=== PATIENT | male | born 1980 | race Caucasian/White ===

== ENCOUNTER → 2017-12-01 | Outpatient (REF) | payer MEDICAID ==
[2017-12-01 16:32] LABS: ALBUMIN 3.7 GM/DL (3.2-5.2); ALBUMIN/GLOBULIN RATIO 0.88 (1.00-1.93); ALKALINE PHOSPHATASE 149 U/L (45-117); ALT/SGPT 72 U/L (12-78); ANION GAP 10 MEQ/L (8-16); AST/SGOT 37 U/L (7-37); BILIRUBIN,TOTAL 0.3 MG/DL (0.2-1.0); BLOOD UREA NITROGEN 19 MG/DL (7-18); CALCIUM LEVEL 9.6 MG/DL (8.5-10.1); CARBON DIOXIDE LEVEL 31 MEQ/L (21-32); CHLORIDE LEVEL 97 MEQ/L (98-107); CREATININE FOR GFR 1.15 MG/DL (0.70-1.30); GLOMERULAR FILTRATION RATE > 60.0 (>60); GLUCOSE, FASTING 303 MG/DL (70-100); POTASSIUM SERUM 4.7 MEQ/L (3.5-5.1); SODIUM LEVEL 138 MEQ/L (136-145); TOTAL PROTEIN 7.9 GM/DL (6.4-8.2)
[2017-12-01 16:49] LABS: ESTIMATED AVERAGE GLUCOSE 212 MG/DL (60-110)
[2017-12-01 17:28] LABS: APPEARANCE, URINE CLEAR (CLEAR); BACTERIA, URINE AUTO NEGATIVE (NEGATIVE); BILIRUBIN, URINE AUTO NEGATIVE (NEGATIVE); BLOOD, URINE BLOOD NEGATIVE (NEGATIVE); COLOR, URINE YELLOW (YELLOW); GLUCOSE, URINE (UA) AUTO 3+ mg/dL (NEGATIVE); KETONE, URINE AUTO NEGATIVE (NEGATIVE); LEUKOCYTE ESTERASE, URINE AUTO NEGATIVE (NEGATIVE); NITRITE, URINE AUTO NEGATIVE (NEGATIVE); PROTEIN, URINE AUTO NEGATIVE (NEGATIVE); RBC, URINE AUTO 0 /HPF (0-3); SPECIFIC GRAVITY URINE AUTO 1.032 (1.002-1.035); SQUAMOUS EPITHELIAL CELL UR AU 1 /HPF (0-6); UROBILINOGEN, URINE AUTO 0.2 mg/dL (0.0-2.0); WBC, URINE AUTO 1 /HPF (0-3)
[2017-12-01 20:05] LABS: CHLAMYDIA DNA AMPLIFICATION NEGATIVE (NEGATIVE); GC DNA AMPLIFICATION NEGATIVE (NEGATIVE)
[2017-12-02 15:47] LABS: HEPATITIS C VIRUS ABY INDEX 0.1 INDEX (<0.8)
[2017-12-03 10:53] LABS: QUANTIFERON GOLD TB Negative (Negative); TB Test (QFT) Antigen 0.11 IU/mL (.); TB Test (QFT) Antigen Minus Ni 0.01 IU/mL (.); TB Test (QFT) Mitogen 7.74 IU/mL (.)
[2017-12-06 00:07] LABS: % CD8 Pos Lymph 65.2 % (12.0-35.5); %CD4 Pos Lymphs 20.2 % (30.8-58.5); ABS Basophils 0.1 x10E3/uL (0.0-0.2); ABS Eosinophils 0.2 x10E3/uL (0.0-0.4); ABS Lymphs 2.1 x10E3/uL (0.7-3.1); ABS Monocytes 0.7 x10E3/uL (0.1-0.9); ABS Neutophils 3.2 x10E3/uL (1.4-7.0); Abs CD4 Helper 424 /uL (359-1519); Abs CD8 Suppres 1369 /uL (109-897); CD4/CD8 Ratio 0.31 (0.92-3.72); Eosinophils 2 % (Not Estab.); HCT 44.2 % (37.5-51.0); HGB 13.5 g/dL (13.0-17.7); Immature Grans 0 % (Not Estab.); Lymphocytes 34 % (Not Estab.); MCH 27.9 pg (26.6-33.0); MCHC 30.5 g/dL (31.5-35.7); MCV 91 fL (79-97); Monocytes 11 % (Not Estab.); Neutrophils 52 % (Not Estab.); Platelets 298 x10E3/uL (150-379); RBC 4.84 x10E6/uL (4.14-5.80); RDW 13.8 % (12.3-15.4); WBC 6.2 x10E3/uL (3.4-10.8)
[2017-12-06 08:12] LABS: RPR Reactive (Non Reactive); T PALLIDUM ANTIBODIES Positive (Negative)
[2017-12-06 10:25] LABS: CHLAMYDIA RECTAL APTIMA Positive (Negative); GC RECTAL APTIMA Negative (Negative)
[2017-12-06 15:00] LABS: CHLAMYDIA PHARYNGEAL APTIMA Negative (Negative); GC PHARYNGEAL APTIMA Negative (Negative)
[2017-12-07 00:08] LABS: HIV-1 RNA PCR QUANT 2 LC550285 117300 copies/mL (.); HIV-1 RNA PCR QUANT 3 LC550285 5.069 (.)
== END ==
LOC: M SFHCPLAZ 13:48
DX: B20 Human immunodeficiency virus [HIV] disease (principal); Z11.3 Encounter for screening for infections with a predominantly sexual mode of transmission; E11.9 Type 2 diabetes mellitus without complications; R21 Rash and other nonspecific skin eruption

== ENCOUNTER → 2018-03-06 | Outpatient (REF) | payer OTHER ==
[2018-03-06 13:15] LABS: ALBUMIN 3.8 GM/DL (3.2-5.2); ALBUMIN/GLOBULIN RATIO 1.03 (1.00-1.93); ALKALINE PHOSPHATASE 92 U/L (45-117); ALT/SGPT 22 U/L (12-78); ANION GAP 5 MEQ/L (8-16); AST/SGOT 14 U/L (7-37); BILIRUBIN,TOTAL 0.2 MG/DL (0.2-1.0); BLOOD UREA NITROGEN 17 MG/DL (7-18); CALCIUM LEVEL 9.5 MG/DL (8.5-10.1); CARBON DIOXIDE LEVEL 30 MEQ/L (21-32); CHLORIDE LEVEL 107 MEQ/L (98-107); CREATININE FOR GFR 1.33 MG/DL (0.70-1.30); GLOMERULAR FILTRATION RATE > 60.0 (>60); GLUCOSE, FASTING 151 MG/DL (70-100); POTASSIUM SERUM 4.4 MEQ/L (3.5-5.1); SODIUM LEVEL 142 MEQ/L (136-145); TOTAL PROTEIN 7.5 GM/DL (6.4-8.2)
[2018-03-06 13:22] LABS: MALB URINE SIEMENS < 5.0 MG/L
[2018-03-06 13:26] LABS: MAU/CREAT RATIO 3.6 MCG/MG (0.0-30.0)
[2018-03-06 13:37] LABS: ESTIMATED AVERAGE GLUCOSE 160 MG/DL (60-110); HEMOGLOBIN A1c 7.2 %
[2018-03-06 14:35] LABS: CHLAMYDIA DNA AMPLIFICATION NEGATIVE (NEGATIVE); GC DNA AMPLIFICATION NEGATIVE (NEGATIVE)
[2018-03-09 00:06] LABS: % CD8 Pos Lymph 47.5 % (12.0-35.5); %CD4 Pos Lymphs 33.8 % (30.8-58.5); ABS Eosinophils 0.3 x10E3/uL (0.0-0.4); ABS Lymphs 2.3 x10E3/uL (0.7-3.1); ABS Monocytes 0.7 x10E3/uL (0.1-0.9); ABS Neutophils 2.6 x10E3/uL (1.4-7.0); Abs CD4 Helper 777 /uL (359-1519); Abs CD8 Suppres 1093 /uL (109-897); CD4/CD8 Ratio 0.71 (0.92-3.72); Eosinophils 5 % (Not Estab.); HCT 39.5 % (37.5-51.0); HGB 12.5 g/dL (13.0-17.7); HIV-1 RNA PCR QUANT 2 LC550285 30 copies/mL (.); HIV-1 RNA PCR QUANT 3 LC550285 1.477 (.); Immature Grans 0 % (Not Estab.); Lymphocytes 38 % (Not Estab.); MCH 28.2 pg (26.6-33.0); MCHC 31.6 g/dL (31.5-35.7); MCV 89 fL (79-97); Monocytes 11 % (Not Estab.); Neutrophils 45 % (Not Estab.); Platelets 341 x10E3/uL (150-379); RBC 4.43 x10E6/uL (4.14-5.80); RDW 15.2 % (12.3-15.4); RPR Reactive (Non Reactive); TREPONEMA PALLIDUM ANTIBODIES Positive (Negative); WBC 5.9 x10E3/uL (3.4-10.8)
== END ==
LOC: M SFHCPLAZ 10:33
DX: B20 Human immunodeficiency virus [HIV] disease (principal); E11.9 Type 2 diabetes mellitus without complications; A56.3 Chlamydial infection of anus and rectum; A51.49 Other secondary syphilitic conditions

== ENCOUNTER → 2018-06-08 | Outpatient (REF) | payer OTHER ==
[~2018-06-08] MED LIST: /QUET25TA OR; AMBI5TAB; CELE20TA; CYCL10TA PO; DIOV320T; DIOV80TA; FOLI1TAB OR; GABA600T4 PO; HCT PO; HYDR25TA6; HYDR25TA6 OR; INSULANT SUBQ; LISI-538 PO; LISI20TA5 OR; LORA2TAB OR; MOTR200T44 PO; MULTIVIT; NOVOLOG100 MG/ML; PAXI20TA OR; SERO1TAB PO; SERO50TA PO; SEROQUEL PO; SIMV40TA2; STRITAB2 PO; THERGRAN; THIA100T OR; TRAZ150T OR; VALI10TA PO; ZOLO50TA PO; ZYPR15TA OR; humalog insulin SUBQ; lisinopril/hctz; tylenol #4 OR
[2018-06-08 11:48] LABS: ALBUMIN 4.6 GM/DL (3.2-5.2); ALT/SGPT 27 U/L (12-78); BILIRUBIN,TOTAL 0.4 MG/DL (0.2-1.0); BLOOD UREA NITROGEN 16 MG/DL (7-18); CALCIUM LEVEL 9.6 MG/DL (8.5-10.1); CARBON DIOXIDE LEVEL 30 MEQ/L (21-32); CHLORIDE LEVEL 101 MEQ/L (98-107); CREATININE FOR GFR 1.26 MG/DL (0.70-1.30); GLOMERULAR FILTRATION RATE > 60.0 (>60); GLUCOSE, FASTING 54 MG/DL (70-100); SODIUM LEVEL 137 MEQ/L (136-145); TOTAL PROTEIN 8.3 GM/DL (6.4-8.2)
[2018-06-08 11:51] LABS: APPEARANCE, URINE CLEAR (CLEAR); BACTERIA, URINE AUTO NEGATIVE (NEGATIVE); BILIRUBIN, URINE AUTO NEGATIVE (NEGATIVE); BLOOD, URINE BLOOD NEGATIVE (NEGATIVE); COLOR, URINE STRAW (YELLOW); GLUCOSE, URINE (UA) AUTO NEGATIVE (NEGATIVE); KETONE, URINE AUTO NEGATIVE (NEGATIVE); LEUKOCYTE ESTERASE, URINE AUTO NEGATIVE (NEGATIVE); NITRITE, URINE AUTO NEGATIVE (NEGATIVE); PROTEIN, URINE AUTO NEGATIVE (NEGATIVE); RBC, URINE AUTO 0 /HPF (0-3); SPECIFIC GRAVITY URINE AUTO 1.008 (1.002-1.035); SQUAMOUS EPITHELIAL CELL UR AU 0 /HPF (0-6); UROBILINOGEN, URINE AUTO 0.2 mg/dL (0.0-2.0); WBC, URINE AUTO 1 /HPF (0-3)
[2018-06-08 12:31] LABS: CREATININE, URINE 26.9 MG/DL; HEMOGLOBIN A1c 6.4 %; MALB URINE SIEMENS < 5.0 MG/L; MAU/CREAT RATIO 18.5 MCG/MG (0.0-30.0)
[2018-06-13 00:06] LABS: % CD8 Pos Lymph 59.4 % (12.0-35.5); %CD4 Pos Lymphs 21.1 % (30.8-58.5); ABS Eosinophils 0.1 x10E3/uL (0.0-0.4); ABS Monocytes 0.9 x10E3/uL (0.1-0.9); ABS Neutophils 2.5 x10E3/uL (1.4-7.0); Abs CD4 Helper 844 /uL (359-1519); Abs CD8 Suppres 2376 /uL (109-897); CD4/CD8 Ratio 0.36 (0.92-3.72); Eosinophils 1 % (Not Estab.); HCT 41.4 % (37.5-51.0); HGB 13.5 g/dL (13.0-17.7); HIV-1 RNA PCR QUANT 2 LC550285 <20 copies/mL (.); Immature Grans 0 % (Not Estab.); Lymphocytes 53 % (Not Estab.); MCH 28.8 pg (26.6-33.0); MCHC 32.6 g/dL (31.5-35.7); MCV 89 fL (79-97); Monocytes 12 % (Not Estab.); Neutrophils 33 % (Not Estab.); Platelets 344 x10E3/uL (150-379); RBC 4.68 x10E6/uL (4.14-5.80); RDW 14.2 % (12.3-15.4); RPR Reactive (Non Reactive); WBC 7.6 x10E3/uL (3.4-10.8)
== END ==
LOC: M SFHCPLAZ 08:36
PROVIDERS: ATTEND Internal Medicine Infectious Disease
DX: B20 Human immunodeficiency virus [HIV] disease (principal); E11.9 Type 2 diabetes mellitus without complications

== ENCOUNTER → 2018-07-28 | Outpatient (CLI) | payer BC, OTHER ==
[~2018-07-28] MED LIST changes: -/QUET25TA OR; +SERO1TAB3 OR
[2018-08-01 00:06] LABS: RPR Reactive (Non Reactive)
== END ==
LOC: M LAB 13:15
PROVIDERS: ATTEND Internal Medicine Infectious Disease
DX: A53.9 Syphilis, unspecified (principal)

== ENCOUNTER → 2018-08-15 | Outpatient (REF) | payer BC, OTHER | LOC: M SFHCPLAZ 13:29 | PROVIDERS: ATTEND Internal Medicine Infectious Disease | DX: R19.7 Diarrhea, unspecified (principal) ==

== ENCOUNTER 2018-09-10 02:54 | Emergency (ER) | payer BC, MEDICAID ==
[~2018-09-10] VITALS: Ht 175.3 cm; Wt 86.4 kg
[2018-09-10 03:08] VITALS: BP 128/73
[2018-09-10] MEDS ORDERED: KETOROLAC 30 MG/ML VIAL (J1885) IV ONE (04:00)
--- NOTE | 2018-09-10 05:27 | REPVR ---
EXAM: CT Head Without Contrast EXAM DATE/TIME: 09/10/2018 3:59 AM CLINICAL HISTORY: 38 years old, male; Injury or trauma; Fall; Initial encounter; Blunt trauma (contusions or hematomas); Consciousness not specified TECHNIQUE: Imaging protocol: Axial computed tomography images of the head/brain without contrast. Radiation optimization: All CT scans at this facility use at least one of these dose optimization techniques: automated exposure control; mA and/or kV adjustment per patient size (includes targeted exams where dose is matched to clinical indication); or iterative reconstruction. COMPARISON: No relevant prior studies available. FINDINGS: Brain: There is no evidence for an acute large vessel territorial infarct, intracranial hemorrhage, mass, mass effect, or herniation. The cortical gyration pattern, basal ganglia, thalami, and cerebellum are normal in appearance. Brainstem: Unremarkable. Midline shift: There is no midline shift. Ventricles: Normal. No ventriculomegaly. Bones/joints: Unremarkable. No acute fracture. Sinuses: Visualized sinuses are unremarkable. No acute sinusitis. Mastoid air cells: Visualized mastoid air cells are unremarkable. No mastoid effusion. Soft tissues: Unremarkable. IMPRESSION: No acute intracranial abnormality. Electronically signed by: Aime Estevez On 09/10/2018 05:27:34 AM
== END 2018-09-10 06:17 | disposition home or self-care (01) ==
LOC: M ED 02:54
DX: E11.65 Type 2 diabetes mellitus with hyperglycemia (principal); I10 Essential (primary) hypertension; Z21 Asymptomatic human immunodeficiency virus [HIV] infection status; Z79.4 Long term (current) use of insulin; Z79.899 Other long term (current) drug therapy
CPT/HCPCS: 70450; 96374; 99284; J1885

== ENCOUNTER → 2018-09-19 | Outpatient (REF) | payer BC, MEDICAID ==
[2018-09-19 10:45] LABS: APPEARANCE, URINE CLEAR (CLEAR); BACTERIA, URINE AUTO NEGATIVE (NEGATIVE); BILIRUBIN, URINE AUTO NEGATIVE (NEGATIVE); BLOOD, URINE BLOOD NEGATIVE (NEGATIVE); COLOR, URINE YELLOW (YELLOW); GLUCOSE, URINE (UA) AUTO 1+ mg/dL (NEGATIVE); KETONE, URINE AUTO NEGATIVE (NEGATIVE); LEUKOCYTE ESTERASE, URINE AUTO NEGATIVE (NEGATIVE); NITRITE, URINE AUTO NEGATIVE (NEGATIVE); PROTEIN, URINE AUTO NEGATIVE (NEGATIVE); RBC, URINE AUTO 3 /HPF (0-3); SPECIFIC GRAVITY URINE AUTO 1.024 (1.002-1.035); SQUAMOUS EPITHELIAL CELL UR AU 2 /HPF (0-6); UROBILINOGEN, URINE AUTO 0.2 mg/dL (0.0-2.0); WBC, URINE AUTO 1 /HPF (0-3)
[2018-09-19 10:56] LABS: ALBUMIN 3.4 GM/DL (3.2-5.2); ALT/SGPT 19 U/L (12-78); BILIRUBIN,TOTAL 0.3 MG/DL (0.2-1.0); BLOOD UREA NITROGEN 16 MG/DL (7-18); CALCIUM LEVEL 8.7 MG/DL (8.5-10.1); CARBON DIOXIDE LEVEL 30 MEQ/L (21-32); CHLORIDE LEVEL 106 MEQ/L (98-107); GLOMERULAR FILTRATION RATE > 60.0 (>60); GLUCOSE, FASTING 176 MG/DL (70-100); POTASSIUM SERUM 4.9 MEQ/L (3.5-5.1); SODIUM LEVEL 139 MEQ/L (136-145); TOTAL PROTEIN 7.1 GM/DL (6.4-8.2)
[2018-09-19 11:27] LABS: HEMOGLOBIN A1c 7.1 %
[2018-09-19 11:36] LABS: CHLAMYDIA DNA AMPLIFICATION NEGATIVE (NEGATIVE); GC DNA AMPLIFICATION NEGATIVE (NEGATIVE)
[2018-09-20 14:11] LABS: RPR Reactive (Non Reactive)
== END ==
LOC: M SFHCPLAZ 08:02
PROVIDERS: ATTEND Internal Medicine Infectious Disease
DX: B20 Human immunodeficiency virus [HIV] disease (principal); E11.9 Type 2 diabetes mellitus without complications; A53.9 Syphilis, unspecified

== ENCOUNTER 2018-11-03 09:48 | Day surgery (SDC) | payer BC ==
[~2018-11-03] VITALS: Ht 175.3 cm; Wt 83.5 kg
[~2018-11-03 09:48] MED LIST changes: +BASA100I SC; +HYDR12.55 PO; +NS 1,000 ML IV ONE
[2018-11-03] MEDS ORDERED: LIDOCAINE 2% INJ 100 MG/5 ML SDV (FOR ANES.) As Ordered ONE (10:20)
[2018-11-03] MEDS ORDERED: FINA5TAB2 PO (10:20)
[2018-11-03] MEDS ORDERED: GENV1TAB PO (10:20)
[2018-11-03] MEDS ORDERED: PROPOFOL 200 MG/20 ML VIAL As Ordered ONE (10:20)
--- NOTE | 2018-11-03 11:15 | ROOR ---
Patient Name: Jose Montes De Oca Procedure Date: 11/03/2018 10:40 AM Date of : 1980 Age: 38 Room: [facility] Gender: Male Note Status: Finalized Procedure: Colonoscopy Indications: Rectal bleeding, Rectal pain Providers: Delfino WHEATLEY MD Referring MD: Eugenio AMGDALENO MD. Requesting Provider: Medicines: Monitored Anesthesia Care Complications: No immediate complications. Procedure: Pre-Anesthesia Assessment: - The heart rate, respiratory rate, oxygen saturations, blood pressure, adequacy of pulmonary ventilation, and response to care were monitored throughout the procedure. The Colonoscope was introduced through the anus and advanced to 10 cm into the ileum. The colonoscopy was performed without difficulty. The patient tolerated the procedure well. The quality of the bowel preparation was fair. Findings: The perianal and digital rectal examinations were normal. Localized inflammation characterized by erythema, friability and shallow ulcerations was found in the distal rectum. Biopsies were taken with a cold forceps for histology. A 4 mm polyp was found in the splenic flexure. The polyp was sessile. The polyp was removed with a cold snare. Resection and retrieval were complete. The terminal ileum appeared normal. Impression: - Preparation of the colon was fair. - Localized inflammation was found in the distal rectum secondary to proctitis (with shallow erosions). Biopsied- r/o IBD. - One 4 mm polyp at the splenic flexure, removed with a cold snare. Resected and retrieved. - The examined portion of the ileum was normal. Recommendation: - Telephone endoscopist for pathology results in 2 weeks. - Use Canasa 1000 mg suppository 1 per rectum QHS for 4 months. Delfino Wheatley MD Delfino WHEATLEY MD 11/03/2018 11:15:06 AM Electronically signed by Delfino WHEATLEY MD Number of Addenda: 0 Note Initiated On: 11/03/2018 10:40 AM Estimated Blood Loss: Estimated blood loss: none.
[2018-11-03 11:41] VITALS: BP 138/97
== END 2018-11-03 11:44 | disposition home or self-care (01) ==
LOC: M OPP 09:48
PROVIDERS: ATTEND Internal Medicine Gastroenterology
DX: D12.3 Benign neoplasm of transverse colon (principal); K51.20 Ulcerative (chronic) proctitis without complications; K62.5 Hemorrhage of anus and rectum; K62.89 Other specified diseases of anus and rectum; B20 Human immunodeficiency virus [HIV] disease; A53.9 Syphilis, unspecified

== ENCOUNTER → 2018-12-19 | Outpatient (REF) | payer BC ==
[~2018-12-19] MED LIST changes: +FINA5TAB2 PO; +GENV1TAB PO; -NS 1,000 ML IV ONE
[2018-12-19 12:34] LABS: ALBUMIN 3.8 GM/DL (3.2-5.2); ALT/SGPT 28 U/L (12-78); BILIRUBIN,TOTAL 0.3 MG/DL (0.2-1.0); BLOOD UREA NITROGEN 10 MG/DL (7-18); CALCIUM LEVEL 9.7 MG/DL (8.5-10.1); CARBON DIOXIDE LEVEL 33 MEQ/L (21-32); CHLORIDE LEVEL 103 MEQ/L (98-107); CHOLESTEROL LEVEL 175 MG/DL (<200); CHOLESTEROL RISK RATIO 6.481 (<5); CREATININE FOR GFR 1.18 MG/DL (0.70-1.30); GLOMERULAR FILTRATION RATE > 60.0 (>60); GLUCOSE, FASTING 70 MG/DL (70-100); HDL CHOLESTEROL 27 MG/DL (>40); LDL CHOLESTEROL 115 MG/DL (<100); NON-HDL-C 148 MG/DL; SODIUM LEVEL 141 MEQ/L (136-145); TOTAL PROTEIN 7.8 GM/DL (6.4-8.2); TRIGLYCERIDES LEVEL 164 MG/DL (<150)
[2018-12-19 12:36] LABS: CHLAMYDIA DNA AMPLIFICATION NEGATIVE (NEGATIVE); GC DNA AMPLIFICATION NEGATIVE (NEGATIVE)
[2018-12-19 12:39] LABS: HEMOGLOBIN A1c 7.6 %
[2018-12-21 08:15] LABS: CHLAMYDIA PHARYNGEAL APTIMA Negative (Negative); GC PHARYNGEAL APTIMA Negative (Negative)
[2018-12-22 00:08] LABS: % CD8 Pos Lymph 45.7 % (12.0-35.5); %CD4 Pos Lymphs 34.9 % (30.8-58.5); ABS Eosinophils 0.2 x10E3/uL (0.0-0.4); ABS Lymphs 3.3 x10E3/uL (0.7-3.1); ABS Monocytes 0.9 x10E3/uL (0.1-0.9); ABS Neutophils 2.5 x10E3/uL (1.4-7.0); Abs CD4 Helper 1152 /uL (359-1519); Abs CD8 Suppres 1508 /uL (109-897); CD4/CD8 Ratio 0.76 (0.92-3.72); Eosinophils 3 % (Not Estab.); HGB 12.3 g/dL (13.0-17.7); HIV-1 RNA PCR QUANT 2 LC550285 650 copies/mL (.); HIV-1 RNA PCR QUANT 3 LC550285 2.813 (.); Immature Grans 0 % (Not Estab.); Lymphocytes 47 % (Not Estab.); MCH 28.3 pg (26.6-33.0); MCHC 31.5 g/dL (31.5-35.7); MCV 90 fL (79-97); Monocytes 13 % (Not Estab.); Neutrophils 36 % (Not Estab.); Platelets 307 x10E3/uL (150-450); RBC 4.35 x10E6/uL (4.14-5.80); RDW 13.4 % (12.3-15.4); RPR Reactive (Non Reactive); WBC 6.8 x10E3/uL (3.4-10.8)
[2018-12-22 08:07] LABS: CHLAMYDIA RECTAL APTIMA Positive (Negative); GC RECTAL APTIMA Negative (Negative)
== END ==
LOC: M SFHCPLAZ 08:30
PROVIDERS: ATTEND Internal Medicine Infectious Disease
DX: B20 Human immunodeficiency virus [HIV] disease (principal); E11.9 Type 2 diabetes mellitus without complications; A53.9 Syphilis, unspecified

== ENCOUNTER → 2019-03-19 | Outpatient (REF) | payer BC ==
[2019-03-19 12:26] LABS: ALBUMIN 3.8 GM/DL (3.2-5.2); ALT/SGPT 34 U/L (12-78); BILIRUBIN,TOTAL 0.2 MG/DL (0.2-1.0); BLOOD UREA NITROGEN 12 MG/DL (7-18); CALCIUM LEVEL 9.1 MG/DL (8.5-10.1); CARBON DIOXIDE LEVEL 31 MEQ/L (21-32); CHLORIDE LEVEL 99 MEQ/L (98-107); GLOMERULAR FILTRATION RATE > 60.0 (>60); GLUCOSE, FASTING 312 MG/DL (70-100); POTASSIUM SERUM 4.1 MEQ/L (3.5-5.1); SODIUM LEVEL 137 MEQ/L (136-145); TOTAL PROTEIN 7.7 GM/DL (6.4-8.2)
[2019-03-19 13:21] LABS: HEMOGLOBIN A1c 7.6 %
[2019-03-19 15:21] LABS: CHLAMYDIA DNA AMPLIFICATION NEGATIVE (NEGATIVE); GC DNA AMPLIFICATION NEGATIVE (NEGATIVE)
[2019-03-22 00:15] LABS: % CD8 Pos Lymph 50.1 % (12.0-35.5); %CD4 Pos Lymphs 27.6 % (30.8-58.5); ABS Lymphs 1.6 x10E3/uL (0.7-3.1); ABS Monocytes 0.7 x10E3/uL (0.1-0.9); ABS Neutophils 8.1 x10E3/uL (1.4-7.0); Abs CD4 Helper 442 /uL (359-1519); Abs CD8 Suppres 802 /uL (109-897); CD4/CD8 Ratio 0.55 (0.92-3.72); Eosinophils 0 % (Not Estab.); HCT 42.2 % (37.5-51.0); HGB 13.7 g/dL (13.0-17.7); HIV-1 RNA PCR QUANT 2 LC550285 40 copies/mL (.); HIV-1 RNA PCR QUANT 3 LC550285 1.602 (.); Imm ABS Grans 0.1 x10E3/uL (0.0-0.1); Immature Grans 1 % (Not Estab.); Lymphocytes 15 % (Not Estab.); MCH 29.5 pg (26.6-33.0); MCHC 32.5 g/dL (31.5-35.7); MCV 91 fL (79-97); Monocytes 7 % (Not Estab.); Neutrophils 77 % (Not Estab.); Platelets 321 x10E3/uL (150-450); RBC 4.64 x10E6/uL (4.14-5.80); RDW 14.1 % (12.3-15.4); RPR Non Reactive (Non Reactive); WBC 10.5 x10E3/uL (3.4-10.8)
[2019-03-22 00:15] LABS: CHLAMYDIA PHARYNGEAL APTIMA Negative (Negative); CHLAMYDIA RECTAL APTIMA Negative (Negative); GC PHARYNGEAL APTIMA Negative (Negative); GC RECTAL APTIMA Negative (Negative)
== END ==
LOC: M SFHCPLAZ 08:46
PROVIDERS: ATTEND Internal Medicine Infectious Disease
DX: B20 Human immunodeficiency virus [HIV] disease (principal); E11.9 Type 2 diabetes mellitus without complications; A53.9 Syphilis, unspecified

== ENCOUNTER → 2019-06-19 | Outpatient (REF) | payer BC ==
[2019-06-19 12:22] LABS: ALBUMIN 4.3 GM/DL (3.2-5.2); ALT/SGPT 33 U/L (12-78); BILIRUBIN,TOTAL 0.5 MG/DL (0.2-1.0); BLOOD UREA NITROGEN 12 MG/DL (7-18); CALCIUM LEVEL 9.7 MG/DL (8.5-10.1); CARBON DIOXIDE LEVEL 33 MEQ/L (21-32); CHLORIDE LEVEL 98 MEQ/L (98-107); CREATININE FOR GFR 1.11 MG/DL (0.70-1.30); FREE T4 0.83 NG/DL (0.76-1.46); GLOMERULAR FILTRATION RATE > 60.0 (>60); GLUCOSE, FASTING 68 MG/DL (70-100); SODIUM LEVEL 137 MEQ/L (136-145); TOTAL PROTEIN 8.1 GM/DL (6.4-8.2)
[2019-06-19 13:20] LABS: CHLAMYDIA DNA AMPLIFICATION NEGATIVE (NEGATIVE); GC DNA AMPLIFICATION NEGATIVE (NEGATIVE)
[2019-06-19 13:31] LABS: HEMOGLOBIN A1c 7.2 %
[2019-06-21 08:06] LABS: CHLAMYDIA PHARYNGEAL APTIMA Negative (Negative); GC PHARYNGEAL APTIMA Positive (Negative)
[2019-06-22 00:06] LABS: % CD8 Pos Lymph 56.8 % (12.0-35.5); %CD4 Pos Lymphs 27.8 % (30.8-58.5); ABS Eosinophils 0.1 x10E3/uL (0.0-0.4); ABS Lymphs 3.3 x10E3/uL (0.7-3.1); ABS Monocytes 1.2 x10E3/uL (0.1-0.9); ABS Neutophils 4.3 x10E3/uL (1.4-7.0); Abs CD4 Helper 917 /uL (359-1519); Abs CD8 Suppres 1874 /uL (109-897); CD4/CD8 Ratio 0.49 (0.92-3.72); Eosinophils 1 % (Not Estab.); HCT 42.3 % (37.5-51.0); HGB 14.2 g/dL (13.0-17.7); HIV-1 RNA PCR QUANT 2 LC550285 <20 copies/mL (.); Immature Grans 0 % (Not Estab.); Lymphocytes 37 % (Not Estab.); MCH 28.7 pg (26.6-33.0); MCHC 33.6 g/dL (31.5-35.7); MCV 86 fL (79-97); Monocytes 13 % (Not Estab.); Neutrophils 49 % (Not Estab.); Platelets 393 x10E3/uL (150-450); RBC 4.94 x10E6/uL (4.14-5.80); RDW 14.2 % (11.6-15.4); RPR Reactive (Non Reactive); WBC 8.9 x10E3/uL (3.4-10.8)
== END ==
LOC: M SFHCPLAZ 09:52
PROVIDERS: ATTEND Internal Medicine Infectious Disease
DX: B20 Human immunodeficiency virus [HIV] disease (principal); E11.9 Type 2 diabetes mellitus without complications; A53.9 Syphilis, unspecified; F32.9 Major depressive disorder, single episode, unspecified

== ENCOUNTER → 2019-12-10 | Outpatient (REF) | payer BC ==
[~2019-12-10] MED LIST changes: +CYCL-707 PO; -CYCL10TA PO
[2019-12-10 15:45] LABS: ALBUMIN 3.7 GM/DL (3.2-5.2); ALT/SGPT 22 U/L (12-78); BILIRUBIN,TOTAL 0.5 MG/DL (0.2-1.0); BLOOD UREA NITROGEN 19 MG/DL (7-18); CALCIUM LEVEL 9.6 MG/DL (8.5-10.1); CARBON DIOXIDE LEVEL 29 MEQ/L (21-32); CHLORIDE LEVEL 99 MEQ/L (98-107); CREATININE FOR GFR 1.17 MG/DL (0.70-1.30); GLOMERULAR FILTRATION RATE > 60.0 (>60); GLUCOSE, FASTING 236 MG/DL (70-100); POTASSIUM SERUM 4.4 MEQ/L (3.5-5.1); SODIUM LEVEL 135 MEQ/L (136-145); TOTAL PROTEIN 8.2 GM/DL (6.4-8.2)
[2019-12-10 17:20] LABS: CHLAMYDIA DNA AMPLIFICATION NEGATIVE (NEGATIVE); GC DNA AMPLIFICATION NEGATIVE (NEGATIVE)
[2019-12-14 19:09] LABS: % CD8 Pos Lymph 61.7 % (12.0-35.5); %CD4 Pos Lymphs 23.7 % (30.8-58.5); ABS Eosinophils 0.1 x10E3/uL (0.0-0.4); ABS Lymphs 1.8 x10E3/uL (0.7-3.1); ABS Monocytes 0.6 x10E3/uL (0.1-0.9); Abs CD4 Helper 427 /uL (359-1519); Abs CD8 Suppres 1111 /uL (109-897); CD4/CD8 Ratio 0.38 (0.92-3.72); Eosinophils 1 % (Not Estab.); HCT 42.9 % (37.5-51.0); HIV-1 RNA PCR QUANT 2 LC550285 99030 copies/mL (.); HIV-1 RNA PCR QUANT 3 LC550285 4.996 (.); Immature Grans 0 % (Not Estab.); Lymphocytes 27 % (Not Estab.); MCH 26.5 pg (26.6-33.0); MCHC 30.3 g/dL (31.5-35.7); MCV 88 fL (79-97); Monocytes 10 % (Not Estab.); Neutrophils 61 % (Not Estab.); Platelets 335 x10E3/uL (150-450); RDW 13.3 % (11.6-15.4); RPR Reactive (Non Reactive); WBC 6.6 x10E3/uL (3.4-10.8)
[2019-12-17 17:08] LABS: CHLAMYDIA PHARYNGEAL APTIMA Negative (Negative); GC PHARYNGEAL APTIMA Negative (Negative)
== END ==
LOC: M SFHCPLAZ 14:04
PROVIDERS: ATTEND Internal Medicine Infectious Disease
DX: B20 Human immunodeficiency virus [HIV] disease (principal); A53.9 Syphilis, unspecified

== ENCOUNTER → 2020-03-05 | Outpatient (REF) | payer OTHER ==
[2020-03-05 13:20] LABS: ALBUMIN 3.8 GM/DL (3.2-5.2); ALT/SGPT 45 U/L (12-78); BILIRUBIN,TOTAL 0.7 MG/DL (0.2-1.0); BLOOD UREA NITROGEN 18 MG/DL (7-18); CALCIUM LEVEL 9.2 MG/DL (8.5-10.1); CARBON DIOXIDE LEVEL 28 MEQ/L (21-32); CHLORIDE LEVEL 101 MEQ/L (98-107); CHOLESTEROL LEVEL 175 MG/DL (<200); FREE T4 1.21 NG/DL (0.76-1.46); GLOMERULAR FILTRATION RATE > 60.0 (>60); GLUCOSE, FASTING 170 MG/DL (70-100); HDL CHOLESTEROL 25 MG/DL (>40); LDL CHOLESTEROL 129 MG/DL (<100); NON-HDL-C 150 MG/DL; SODIUM LEVEL 135 MEQ/L (136-145); THYROID STIMULATING HORMONE 0.545 uIU/ML (0.358-3.740); TRIGLYCERIDES LEVEL 106 MG/DL (<150)
[2020-03-05 13:54] LABS: HEMOGLOBIN A1c 7.6 %
== END ==
LOC: M SFHCPLAZ 09:58
PROVIDERS: ATTEND Family Medicine
DX: I10 Essential (primary) hypertension (principal); E78.2 Mixed hyperlipidemia; R79.89 Other specified abnormal findings of blood chemistry; E11.9 Type 2 diabetes mellitus without complications

== ENCOUNTER → 2020-03-17 | Outpatient (REF) | payer OTHER | LOC: M SFHCPLAZ 11:20 | PROVIDERS: ATTEND Internal Medicine Infectious Disease | DX: B20 Human immunodeficiency virus [HIV] disease (principal); A53.9 Syphilis, unspecified ==

== ENCOUNTER → 2020-09-15 | Outpatient (REF) | payer OTHER ==
[~2020-09-15] MED LIST changes: -LISI-538 PO; +LISI20TA33 PO
== END ==
LOC: M SFHCPLAZ 09:23
PROVIDERS: ATTEND Internal Medicine Infectious Disease
DX: B20 Human immunodeficiency virus [HIV] disease (principal); E11.9 Type 2 diabetes mellitus without complications

== ENCOUNTER → 2020-12-29 | Outpatient (REF) | payer OTHER ==
[2020-12-29 14:24] LABS: CREATININE, URINE 91.1 MG/DL; MALB URINE SIEMENS 7.2 MG/L; MAU/CREAT RATIO 7.9 MCG/MG (0.0-30.0)
== END ==
LOC: M SFHCPLAZ 13:21
PROVIDERS: ATTEND Family Medicine
DX: I10 Essential (primary) hypertension (principal)

== ENCOUNTER → 2021-02-03 | Outpatient (CLI) | payer OTHER ==
[2021-02-03 11:50] LABS: ALBUMIN 3.7 GM/DL (3.2-5.2); BILIRUBIN,TOTAL 0.5 MG/DL (0.2-1.0); CALCIUM LEVEL 9.4 MG/DL (8.5-10.1); CREATININE FOR GFR 1.41 MG/DL (0.70-1.30); GLOMERULAR FILTRATION RATE 59.3 (>60); POTASSIUM SERUM 4.5 MEQ/L (3.5-5.1); TOTAL PROTEIN 7.5 GM/DL (6.4-8.2)
[2021-02-03 12:45] LABS: HEMOGLOBIN A1c 7.5 %
== END ==
LOC: M PLALAB 07:48
PROVIDERS: ATTEND Family Medicine
DX: E10.69 Type 1 diabetes mellitus with other specified complication (principal)

== ENCOUNTER → 2021-02-17 | Outpatient (CLI) | payer OTHER ==
[2021-02-17 14:06] LABS: BLOOD UREA NITROGEN 15 MG/DL (7-18); CALCIUM LEVEL 9.3 MG/DL (8.5-10.1); CARBON DIOXIDE LEVEL 30 MEQ/L (21-32); CHLORIDE LEVEL 104 MEQ/L (98-107); CREATININE FOR GFR 1.23 MG/DL (0.70-1.30); GLOMERULAR FILTRATION RATE > 60.0 (>60); GLUCOSE, FASTING 162 MG/DL (70-100); POTASSIUM SERUM 4.7 MEQ/L (3.5-5.1); SODIUM LEVEL 139 MEQ/L (136-145)
== END ==
LOC: M PLALAB 10:37
PROVIDERS: ATTEND Family Medicine
DX: R94.4 Abnormal results of kidney function studies (principal)

== ENCOUNTER → 2021-03-16 | Outpatient (CLI) | payer OTHER ==
[2021-03-16 14:40] LABS: FREE T4 1.02 NG/DL (0.76-1.46); THYROID STIMULATING HORMONE 5.72 uIU/ML (0.358-3.740)
[2021-03-18 16:38] LABS: RPR Reactive (Non Reactive)
== END ==
LOC: M PLALAB 08:48
PROVIDERS: ATTEND Internal Medicine Infectious Disease
DX: A53.9 Syphilis, unspecified (principal); E11.9 Type 2 diabetes mellitus without complications

== ENCOUNTER → 2021-05-01 | Outpatient (REF) | payer OTHER, BC | LOC: M LAB REF 18:00 | PROVIDERS: ATTEND Internal Medicine Gastroenterology | DX: K51.218 Ulcerative (chronic) proctitis with other complication (principal) ==

== ENCOUNTER → 2021-05-19 | Outpatient (CLI) | payer OTHER ==
[2021-05-19 15:35] LABS: HEMOGLOBIN A1c 6.7 %
[2021-05-19 15:55] LABS: ALBUMIN 3.7 GM/DL (3.2-5.2); ALT/SGPT 29 U/L (12-78); BILIRUBIN,TOTAL 0.4 MG/DL (0.2-1.0); BLOOD UREA NITROGEN 16 MG/DL (7-18); CALCIUM LEVEL 9.4 MG/DL (8.5-10.1); CARBON DIOXIDE LEVEL 31 MEQ/L (21-32); CHLORIDE LEVEL 102 MEQ/L (98-107); CREATININE FOR GFR 1.29 MG/DL (0.70-1.30); FREE T4 0.89 NG/DL (0.76-1.46); GLOMERULAR FILTRATION RATE > 60.0 (>60); GLUCOSE, FASTING 128 MG/DL (70-100); POTASSIUM SERUM 4.4 MEQ/L (3.5-5.1); SODIUM LEVEL 139 MEQ/L (136-145); TOTAL PROTEIN 7.2 GM/DL (6.4-8.2)
[2021-05-21 16:08] LABS: % CD8 Pos Lymph 62.3 % (12.0-35.5); %CD4 Pos Lymphs 23.1 % (30.8-58.5); ABS Basophils 0.1 x10E3/uL (0.0-0.2); ABS Eosinophils 0.2 x10E3/uL (0.0-0.4); ABS Lymphs 2.8 x10E3/uL (0.7-3.1); ABS Monocytes 0.6 x10E3/uL (0.1-0.9); Abs CD4 Helper 647 /uL (359-1519); Abs CD8 Suppres 1744 /uL (109-897); CD4/CD8 Ratio 0.37 (0.92-3.72); Eosinophils 4 % (Not Estab.); HCT 41.7 % (37.5-51.0); HGB 13.9 g/dL (13.0-17.7); HIV-1 RNA PCR QUANT 2 LC550285 <20 copies/mL (.); Immature Grans 0 % (Not Estab.); Lymphocytes 49 % (Not Estab.); MCH 29.3 pg (26.6-33.0); MCHC 33.3 g/dL (31.5-35.7); MCV 88 fL (79-97); Monocytes 11 % (Not Estab.); Neutrophils 35 % (Not Estab.); Platelets 338 x10E3/uL (150-450); RBC 4.75 x10E6/uL (4.14-5.80); RDW 13.4 % (11.6-15.4); RPR Reactive (Non Reactive); WBC 5.6 x10E3/uL (3.4-10.8)
== END ==
LOC: M PLALAB 11:38
PROVIDERS: ATTEND Internal Medicine Infectious Disease
DX: E11.9 Type 2 diabetes mellitus without complications (principal)

== ENCOUNTER → 2021-06-27 | Outpatient (CLI) | payer OTHER ==
[~2021-06-27] MED LIST changes: +AMLO1TAB24 PO; +BIKT1TAB PO; +BUPR150T12 PO; +GABA-282 PO; +LISI20TA37 PO
== END ==
LOC: M LABSMTC 10:32
PROVIDERS: ATTEND Anesthesiology
DX: Z01.812 Encounter for preprocedural laboratory examination (principal); Z20.822 Contact with and (suspected) exposure to COVID-19

== ENCOUNTER 2021-07-02 06:35 | Day surgery (SDC) | payer OTHER ==
[~2021-07-02] VITALS: Ht 172.7 cm; Wt 112.9 kg
[~2021-07-02 06:35] MED LIST changes: +NS 1,000 ML IV ONE
[2021-07-02] MEDS ORDERED: LIDOCAINE 2% 100MG/5ML SDV (FOR ANES.) As Ordered ONE (07:12)
[2021-07-02] MEDS ORDERED: propofoL 200 MG/20 ML VIAL As Ordered ONE (07:12)
[2021-07-02 08:19] VITALS: BP 149/85
== END 2021-07-02 08:22 | disposition home or self-care (01) ==
LOC: M OPP 06:35
PROVIDERS: ATTEND Internal Medicine Gastroenterology
DX: D12.2 Benign neoplasm of ascending colon (principal); D12.3 Benign neoplasm of transverse colon; D12.4 Benign neoplasm of descending colon; D12.5 Benign neoplasm of sigmoid colon; K62.1 Rectal polyp; K51.20 Ulcerative (chronic) proctitis without complications; Z79.4 Long term (current) use of insulin; Z79.899 Other long term (current) drug therapy

== ENCOUNTER → 2021-08-06 | Outpatient (CLI) | payer OTHER ==
[~2021-08-06] MED LIST changes: -NS 1,000 ML IV ONE
[2021-08-06 10:41] LABS: BLOOD UREA NITROGEN 18 MG/DL (7-18); CALCIUM LEVEL 9.7 MG/DL (8.5-10.1); CARBON DIOXIDE LEVEL 31 MEQ/L (21-32); CHLORIDE LEVEL 101 MEQ/L (98-107); CHOLESTEROL LEVEL 205 MG/DL (<200); CREATININE FOR GFR 1.34 MG/DL (0.70-1.30); GLOMERULAR FILTRATION RATE > 60.0 (>60); GLUCOSE, FASTING 225 MG/DL (70-100); HDL CHOLESTEROL 25 MG/DL (>40); LDL CHOLESTEROL 149 MG/DL (<100); NON-HDL-C 180 MG/DL; POTASSIUM SERUM 4.8 MEQ/L (3.5-5.1); SODIUM LEVEL 136 MEQ/L (136-145); TRIGLYCERIDES LEVEL 156 MG/DL (<150)
[2021-08-06 12:02] LABS: HEMOGLOBIN A1c 7.7 %
== END ==
LOC: M PLAIMG 08:25
PROVIDERS: ATTEND Family Medicine
DX: M25.861 Other specified joint disorders, right knee (principal); E11.9 Type 2 diabetes mellitus without complications; I10 Essential (primary) hypertension; E78.2 Mixed hyperlipidemia

== ENCOUNTER → 2021-09-14 | Outpatient (CLI) | payer OTHER ==
[2021-09-14 11:25] LABS: ALBUMIN 4.2 GM/DL (3.2-5.2); BILIRUBIN,TOTAL 0.6 MG/DL (0.2-1.0); CALCIUM LEVEL 9.8 MG/DL (8.5-10.1); CREATININE FOR GFR 1.67 MG/DL (0.70-1.30); GLOMERULAR FILTRATION RATE 48.5 (>60); POTASSIUM SERUM 4.8 MEQ/L (3.5-5.1); TOTAL PROTEIN 8.1 GM/DL (6.4-8.2)
[2021-09-16 04:07] LABS: %CD4 Pos Lymphs 30.8 % (30.8-58.5); ABS Basophils 0.1 x10E3/uL (0.0-0.2); ABS Eosinophils 0.1 x10E3/uL (0.0-0.4); ABS Monocytes 1.1 x10E3/uL (0.1-0.9); ABS Neutophils 3.4 x10E3/uL (1.4-7.0); Abs CD4 Helper 1232 /uL (359-1519); Abs CD8 Suppres 1920 /uL (109-897); CD4/CD8 Ratio 0.64 (0.92-3.72); Eosinophils 1 % (Not Estab.); HCT 43.1 % (37.5-51.0); HGB 14.3 g/dL (13.0-17.7); HIV-1 RNA PCR QUANT 2 LC550285 <20 copies/mL (.); Immature Grans 0 % (Not Estab.); Lymphocytes 46 % (Not Estab.); MCH 29.6 pg (26.6-33.0); MCHC 33.2 g/dL (31.5-35.7); MCV 89 fL (79-97); Monocytes 12 % (Not Estab.); Neutrophils 40 % (Not Estab.); Platelets 352 x10E3/uL (150-450); RBC 4.83 x10E6/uL (4.14-5.80); RDW 13.4 % (11.6-15.4); WBC 8.6 x10E3/uL (3.4-10.8)
== END ==
LOC: M PLALAB 08:20
PROVIDERS: ATTEND Internal Medicine Infectious Disease
DX: B20 Human immunodeficiency virus [HIV] disease (principal)

== ENCOUNTER → 2021-12-07 | Outpatient (CLI) | payer OTHER ==
[2021-12-07 11:05] LABS: HEMATOCRIT 44.9 % (42.0-52.0); MEAN CORPUSCULAR HEMOGLOBIN 28.7 pg (27.0-33.0); MEAN CORPUSCULAR HGB CONC 31.2 g/dl (32.0-36.5); MEAN CORPUSCULAR VOLUME 92.2 fl (80.0-96.0); PLATELET COUNT, AUTOMATED 331 10^3/uL (150-450); RED BLOOD COUNT 4.87 10^6/uL (4.30-6.10); WHITE BLOOD COUNT 6.6 10^3/uL (4.0-10.0)
[2021-12-07 15:47] LABS: ALBUMIN 3.7 GM/DL (3.2-5.2); ALT/SGPT 27 U/L (12-78); BILIRUBIN,TOTAL 0.4 MG/DL (0.2-1.0); BLOOD UREA NITROGEN 15 MG/DL (7-18); C REACTIVE PROTEIN QUANTITATIV 0.35 MG/DL (0.00-0.30); CALCIUM LEVEL 9.6 MG/DL (8.5-10.1); CARBON DIOXIDE LEVEL 29 MEQ/L (21-32); CHLORIDE LEVEL 101 MEQ/L (98-107); CHOLESTEROL LEVEL 224 MG/DL (<200); CHOLESTEROL RISK RATIO 10.181 (<5); CREATININE FOR GFR 1.32 MG/DL (0.70-1.30); FREE T4 0.91 NG/DL (0.76-1.46); GLOMERULAR FILTRATION RATE > 60.0 (>60); GLUCOSE, FASTING 198 MG/DL (70-100); HDL CHOLESTEROL 22 MG/DL (>40); LDL CHOLESTEROL 156 MG/DL (<100); NON-HDL-C 202 MG/DL; POTASSIUM SERUM 4.7 MEQ/L (3.5-5.1); SODIUM LEVEL 135 MEQ/L (136-145); TOTAL 25(OH) VITAMIN D 28.9 NG/ML (30.0-100.0); TOTAL PROTEIN 7.5 GM/DL (6.4-8.2); TRIGLYCERIDES LEVEL 232 MG/DL (<150); VITAMIN B12 LEVEL 438 PG/ML (247-911)
[2021-12-07 18:37] LABS: MALB URINE SIEMENS 8.4 MG/L; MAU/CREAT RATIO 4.3 MCG/MG (0.0-30.0)
[2021-12-08 00:57] LABS: HEMOGLOBIN A1c 7.6 %
== END ==
LOC: M PLALAB 07:51
PROVIDERS: ATTEND Internal Medicine Hematology
DX: E11.9 Type 2 diabetes mellitus without complications (principal)

== ENCOUNTER → 2022-04-01 | Outpatient (CLI) | payer OTHER ==
[2022-04-01 15:35] LABS: ALBUMIN 3.9 GM/DL (3.2-5.2); ALT/SGPT 28 U/L (12-78); BILIRUBIN,TOTAL 0.4 MG/DL (0.2-1.0); BLOOD UREA NITROGEN 15 MG/DL (7-18); CARBON DIOXIDE LEVEL 31 MEQ/L (21-32); CHLORIDE LEVEL 100 MEQ/L (98-107); CREATININE FOR GFR 1.04 MG/DL (0.70-1.30); GLOMERULAR FILTRATION RATE > 60.0 (>60); GLUCOSE, FASTING 239 MG/DL (70-100); POTASSIUM SERUM 4.6 MEQ/L (3.5-5.1); SODIUM LEVEL 137 MEQ/L (136-145)
[2022-04-02 19:07] LABS: % CD8 Pos Lymph 51.5 % (12.0-35.5); %CD4 Pos Lymphs 30.3 % (30.8-58.5); ABS Basophils 0.1 x10E3/uL (0.0-0.2); ABS Eosinophils 0.3 x10E3/uL (0.0-0.4); ABS Lymphs 4.1 x10E3/uL (0.7-3.1); ABS Monocytes 0.8 x10E3/uL (0.1-0.9); ABS Neutophils 2.4 x10E3/uL (1.4-7.0); Abs CD4 Helper 1242 /uL (359-1519); Abs CD8 Suppres 2112 /uL (109-897); CD4/CD8 Ratio 0.59 (0.92-3.72); Eosinophils 3 % (Not Estab.); HCT 41.7 % (37.5-51.0); HGB 13.2 g/dL (13.0-17.7); HIV-1 RNA PCR QUANT 2 LC550285 <20 copies/mL (.); Immature Grans 0 % (Not Estab.); Lymphocytes 53 % (Not Estab.); MCH 27.7 pg (26.6-33.0); MCHC 31.7 g/dL (31.5-35.7); MCV 88 fL (79-97); Monocytes 11 % (Not Estab.); Neutrophils 32 % (Not Estab.); Platelets 270 x10E3/uL (150-450); RBC 4.76 x10E6/uL (4.14-5.80); RDW 12.8 % (11.6-15.4); WBC 7.6 x10E3/uL (3.4-10.8)
== END ==
LOC: M PLALAB 10:40
PROVIDERS: ATTEND Internal Medicine Infectious Disease
DX: B20 Human immunodeficiency virus [HIV] disease (principal)

== ENCOUNTER → 2022-06-17 | Outpatient (CLI) | payer OTHER ==
[2022-06-17 15:30] LABS: C REACTIVE PROTEIN QUANTITATIV < 0.40 MG/DL (<1.0)
[2022-06-17 15:31] LABS: ALBUMIN 3.9 G/DL (3.2-5.2); ALKALINE PHOSPHATASE 92 U/L (46-116); ALT/SGPT 24 U/L (7.0-40); AST/SGOT 21 U/L (<34); BILIRUBIN,TOTAL 0.4 MG/DL (0.3-1.2); BLOOD UREA NITROGEN 14 MG/DL (9-23); CARBON DIOXIDE LEVEL 32 MMOL/L (20-31); CHLORIDE LEVEL 99 MMOL/L (98-107); CHOLESTEROL LEVEL 118 MG/DL (<200); CHOLESTEROL RISK RATIO 3.76 (<5); CREATININE FOR GFR 1.19 MG/DL (0.70-1.30); GLOMERULAR FILTRATION RATE > 60.0 (>60); GLUCOSE, FASTING 174 MG/DL (60-100); HDL CHOLESTEROL 31.3 MG/DL (>40); LDL CHOLESTEROL 72.9 MG/DL (<100); NON-HDL-C 87 MG/DL; POTASSIUM SERUM 4.4 MMOL/L (3.5-5.1); SODIUM LEVEL 138 MMOL/L (136-145); TOTAL PROTEIN 7.4 G/DL (5.7-8.2); TRIGLYCERIDES LEVEL 69 MG/DL (<150)
[2022-06-17 15:33] LABS: THYROID STIMULATING HORMONE 4.376 uIU/ML (0.55-4.78); TOTAL 25(OH) VITAMIN D 16.2 NG/ML (20.0-100.0); VITAMIN B12 LEVEL 811 PG/ML (211-911)
[2022-06-17 15:34] LABS: FREE T4 0.92 NG/DL (0.89-1.76)
[2022-06-17 16:01] LABS: MAU/CREAT RATIO 4.5 MCG/MG (0.0-30.0)
[2022-06-17 16:10] LABS: HEMATOCRIT 42.3 % (42.0-52.0); HEMOGLOBIN 13.3 g/dl (13.5-17.5); MEAN CORPUSCULAR HGB CONC 31.4 g/dl (32.0-36.5); MEAN CORPUSCULAR VOLUME 89.1 fl (80.0-96.0); PLATELET COUNT, AUTOMATED 327 10^3/uL (150-450); RED BLOOD COUNT 4.75 10^6/uL (4.30-6.10); WHITE BLOOD COUNT 8.9 10^3/uL (4.0-10.0)
[2022-06-17 17:47] LABS: HEMOGLOBIN A1c 7.2 % (4.0-6.0)
== END ==
LOC: M PLALAB 09:35
PROVIDERS: ATTEND Internal Medicine Hematology
DX: E11.9 Type 2 diabetes mellitus without complications (principal)

== ENCOUNTER → 2022-08-02 | Outpatient (CLI) | payer OTHER ==
[2022-08-03 23:07] LABS: %CD4 Pos Lymphs 31.4 % (30.8-58.5); ABS Eosinophils 0.1 x10E3/uL (0.0-0.4); ABS Lymphs 2.8 x10E3/uL (0.7-3.1); ABS Monocytes 0.8 x10E3/uL (0.1-0.9); ABS Neutophils 2.8 x10E3/uL (1.4-7.0); Abs CD4 Helper 879 /uL (359-1519); Abs CD8 Suppres 1344 /uL (109-897); CD4/CD8 Ratio 0.65 (0.92-3.72); Eosinophils 2 % (Not Estab.); HCT 40.5 % (37.5-51.0); HGB 13.6 g/dL (13.0-17.7); HIV-1 RNA PCR QUANT 2 LC550285 30 copies/mL (.); HIV-1 RNA PCR QUANT 3 LC550285 1.477 (.); Immature Grans 0 % (Not Estab.); Lymphocytes 43 % (Not Estab.); MCH 28.9 pg (26.6-33.0); MCHC 33.6 g/dL (31.5-35.7); MCV 86 fL (79-97); Monocytes 12 % (Not Estab.); Neutrophils 42 % (Not Estab.); Platelets 358 x10E3/uL (150-450); RDW 13.4 % (11.6-15.4); WBC 6.6 x10E3/uL (3.4-10.8)
== END ==
LOC: M PLALAB 08:46
PROVIDERS: ATTEND Internal Medicine Infectious Disease
DX: B20 Human immunodeficiency virus [HIV] disease (principal)

== ENCOUNTER → 2022-11-25 | Outpatient (CLI) | payer OTHER ==
[2022-11-25 11:17] LABS: HEMOGLOBIN A1c 7.3 % (4.0-6.0)
[2022-11-25 13:22] LABS: ALBUMIN 3.9 G/DL (3.2-5.2); ALKALINE PHOSPHATASE 98 U/L (46-116); ALT/SGPT 21 U/L (7.0-40); AST/SGOT 10 U/L (<34); BILIRUBIN,TOTAL 0.4 MG/DL (0.3-1.2); BLOOD UREA NITROGEN 17 MG/DL (9-23); CALCIUM LEVEL 10.4 MG/DL (8.5-10.1); CARBON DIOXIDE LEVEL 33 MMOL/L (20-31); CHLORIDE LEVEL 102 MMOL/L (98-107); CREATININE FOR GFR 1.18 MG/DL (0.70-1.30); GLOMERULAR FILTRATION RATE > 60.0 (>60); GLUCOSE, FASTING 29 MG/DL (60-100); POTASSIUM SERUM 4.2 MMOL/L (3.5-5.1); SODIUM LEVEL 139 MMOL/L (136-145); TOTAL PROTEIN 7.5 G/DL (5.7-8.2)
[2022-11-27 02:07] LABS: % CD8 Pos Lymph 46.2 % (12.0-35.5); %CD4 Pos Lymphs 32.1 % (30.8-58.5); ABS Basophils 0.1 x10E3/uL (0.0-0.2); ABS Eosinophils 0.2 x10E3/uL (0.0-0.4); ABS Lymphs 3.5 x10E3/uL (0.7-3.1); ABS Monocytes 0.9 x10E3/uL (0.1-0.9); ABS Neutophils 3.7 x10E3/uL (1.4-7.0); Abs CD4 Helper 1124 /uL (359-1519); Abs CD8 Suppres 1617 /uL (109-897); CD4/CD8 Ratio 0.69 (0.92-3.72); Eosinophils 2 % (Not Estab.); HCT 43.3 % (37.5-51.0); HGB 14.5 g/dL (13.0-17.7); HIV-1 RNA PCR QUANT 2 LC550285 <20 copies/mL (.); Immature Grans 0 % (Not Estab.); Lymphocytes 42 % (Not Estab.); MCH 28.5 pg (26.6-33.0); MCHC 33.5 g/dL (31.5-35.7); MCV 85 fL (79-97); Monocytes 11 % (Not Estab.); Neutrophils 44 % (Not Estab.); Platelets 377 x10E3/uL (150-450); RBC 5.08 x10E6/uL (4.14-5.80); RDW 13.1 % (11.6-15.4); WBC 8.4 x10E3/uL (3.4-10.8)
== END ==
LOC: M PLALAB 08:53
PROVIDERS: ATTEND Internal Medicine Infectious Disease
DX: B20 Human immunodeficiency virus [HIV] disease (principal); E11.9 Type 2 diabetes mellitus without complications

== ENCOUNTER → 2023-06-20 | Outpatient (CLI) | payer OTHER ==
[2023-06-20 12:58] LABS: HEMATOCRIT 42.5 % (42.0-52.0); HEMOGLOBIN 13.6 g/dl (13.5-17.5); MEAN CORPUSCULAR HEMOGLOBIN 28.5 pg (27.0-33.0); MEAN CORPUSCULAR VOLUME 88.9 fl (80.0-96.0); PLATELET COUNT, AUTOMATED 344 10^3/uL (150-450); RED BLOOD COUNT 4.78 10^6/uL (4.30-6.10); WHITE BLOOD COUNT 8.1 10^3/uL (4.0-10.0)
[2023-06-20 13:02] LABS: C REACTIVE PROTEIN QUANTITATIV < 0.40 MG/DL (<1.0)
[2023-06-20 13:03] LABS: FREE T4 0.85 NG/DL (0.89-1.76)
[2023-06-20 13:04] LABS: ALKALINE PHOSPHATASE 108 U/L (46-116); ALT/SGPT 27 U/L (7.0-40); AST/SGOT 22 U/L (<34); BILIRUBIN,TOTAL 0.6 MG/DL (0.3-1.2); BLOOD UREA NITROGEN 17 MG/DL (9-23); CALCIUM LEVEL 9.7 MG/DL (8.5-10.1); CARBON DIOXIDE LEVEL 27 MMOL/L (20-31); CHLORIDE LEVEL 104 MMOL/L (98-107); CHOLESTEROL LEVEL 161 MG/DL (<200); CHOLESTEROL RISK RATIO 4.27 (<5); GLOMERULAR FILTRATION RATE > 60.0 (>60); GLUCOSE, FASTING 358 MG/DL (60-100); HDL CHOLESTEROL 37.7 MG/DL (>40); LDL CHOLESTEROL 107.3 MG/DL (<100); NON-HDL-C 123.3 MG/DL; POTASSIUM SERUM 5.6 MMOL/L (3.5-5.1); SODIUM LEVEL 138 MMOL/L (136-145); THYROID STIMULATING HORMONE 2.909 uIU/ML (0.55-4.78); TOTAL 25(OH) VITAMIN D 23.3 NG/ML (20.0-100.0); TOTAL PROTEIN 7.4 G/DL (5.7-8.2); TRIGLYCERIDES LEVEL 80 MG/DL (<150); VITAMIN B12 LEVEL 500 PG/ML (211-911)
[2023-06-20 13:15] LABS: CREATININE, URINE 72.1 MG/DL
[2023-06-20 13:16] LABS: MALB URINE SIEMENS < 3.0 MG/L; MAU/CREAT RATIO 4.1 MCG/MG (0.0-30.0)
[2023-06-20 13:38] LABS: HEMOGLOBIN A1c 7.8 % (4.0-6.0)
== END ==
LOC: M PLALAB 08:14
PROVIDERS: ATTEND Internal Medicine Hematology
DX: E11.9 Type 2 diabetes mellitus without complications (principal)

== ENCOUNTER → 2023-12-19 | Outpatient (REF) | payer BC, MEDICAID, OTHER ==
[~2023-12-19] MED LIST changes: +GABA-1490 PO; -GABA600T4 PO
[2023-12-19 15:01] LABS: ALBUMIN 4.3 G/DL (3.2-5.2); ALKALINE PHOSPHATASE 140 U/L (46-116); ALT/SGPT 27 U/L (7.0-40); AST/SGOT 10 U/L (<34); BILIRUBIN,TOTAL 0.5 MG/DL (0.3-1.2); BLOOD UREA NITROGEN 17 MG/DL (9-23); CALCIUM LEVEL 10.3 MG/DL (8.5-10.1); CARBON DIOXIDE LEVEL 29 MMOL/L (20-31); CHLORIDE LEVEL 103 MMOL/L (98-107); CREATININE FOR GFR 1.05 MG/DL (0.70-1.30); GLOMERULAR FILTRATION RATE > 60.0 (>60); GLUCOSE, FASTING 255 MG/DL (60-100); POTASSIUM SERUM 4.4 MMOL/L (3.5-5.1); SODIUM LEVEL 136 MMOL/L (136-145); TOTAL PROTEIN 7.8 G/DL (5.7-8.2)
[2023-12-19 15:17] LABS: HEMOGLOBIN A1c 11.1 % (4.0-6.0)
[2023-12-22 18:22] LABS: HIV-1 RNA PCR QUANT 2 <20 DETECTED copies/mL (NOT DETECTED); HIV-1 RNA PCR QUANT 3 <1.30 DETECTED (NOT DETECTED)
[2023-12-29 12:56] LABS: %CD8 53 % (12-42); ABSOLUTE CD4 CELLS 678 cells/ul (490-1740); ABSOLUTE CD8 CELLS 1304 cells/ul (180-1170); CD4 CD8 RATIO 0.53 (0.86-5.00)
[2023-12-29 12:57] LABS: ABSOLUTE LYMPHOCYTES 2456 cells/ul (850-3900)
[2023-12-29 12:58] LABS: % CD4 28 % (30-61)
== END ==
LOC: M SFHCPLAZ 13:10
PROVIDERS: ATTEND Internal Medicine Infectious Disease
DX: B20 Human immunodeficiency virus [HIV] disease (principal); E11.9 Type 2 diabetes mellitus without complications